=== PATIENT | male | born 1990 | race Caucasian/White ===

== ENCOUNTER 2016-04-19 11:25 | Emergency (ER) | payer MEDICAID, OTHER ==
[2016-04-19 11:51] VITALS: BP 103/58
--- NOTE | 2016-04-19 12:09 | UC ---
Throat Pain/Nasal Nikolas HPI - HPI Summary HPI Summary: complaint of nasal congestion cough sore throat that started yesterday feels worse this morning congestion increasing throat hurts more intermittent headaches in entire head denies ear pain ,fever and chills, tried some dayquil yesterday without relief - History of Current Complaint Chief Complaint: UCRespiratory Stated Complaint: COUGH Hx Obtained From: Patient - Allergies/Home Medications Allergies/Adverse Reactions: Allergies Allergy/AdvReac Type Severity Reaction Status Date / Time Penicillins Allergy Severe ITCHY Verified 07/05/14 08:47 PMH/Surg Hx/FS Hx/Imm Hx Previously Healthy: Yes Endocrine History Of: Denies: Diabetes, Thyroid Disease Cardiovascular History Of: Denies: Cardiac Disorders, Hypertension Respiratory History Of: Reports: Asthma - as a child Denies: COPD GI/ History Of: Denies: Ulcer - Surgical History Surgical History: None Surgery Procedure, Year, and Place: none - Family History Known Family History: Negative: Cardiac Disease, Hypertension, Diabetes - Social History Occupation: Employed Full-time Lives: With Family Alcohol Use: Rare Substance Use Type: Marijuana Smoking Status (MU): Heavy Every Day Tobacco Smoker Type: Cigarettes Amount Used/How Often: 03/29 ppd Cessation Counseling: Patient Advised to Stop Review of Systems Constitutional: Negative Skin: Negative Eyes: Negative ENT: Sore Throat, Nasal Discharge Respiratory: Cough Cardiovascular: Negative Gastrointestinal: Negative Genitourinary: Negative Motor: Negative Neurovascular: Negative Musculoskeletal: Negative Neurological: Negative Psychological: Negative All Other Systems Reviewed And Are Negative: Yes Physical Exam Triage Information Reviewed: Yes Appearance: No Pain Distress, Well-Nourished Vital Signs: Initial Vital Signs Temp 98.8 F 04/19/16 11:39 Pulse 86 04/19/16 11:39 Resp 17 04/19/16 11:39 BP 103/58 04/19/16 11:39 Pulse Ox 96 04/19/16 11:39 Vital Signs Reviewed: Yes Eyes: Positive: Conjunctiva Clear ENT: Positive: Pharyngeal erythema, Nasal congestion, TMs normal. Negative: TM bulging, TM red, Tonsillar swelling, Tonsillar exudate Neck: Positive: No Lymphadenopathy Respiratory: Positive: Lungs clear, Normal breath sounds, No respiratory distress Cardiovascular: Positive: RRR, No Murmur, Pulses Normal Abdomen Description: Positive: Nontender, Soft Bowel Sounds: Positive: Present Musculoskeletal: Positive: No Edema Neurological: Positive: Alert Psychological Exam: Normal Skin Exam: Normal Throat Pain/Nasal Course/Dx - Course Course Of Treatment: exam completed. viral illnes- symptomatic treatment - Differential Dx/Diagnosis Differential Diagnosis/HQI/PQRI: Pharyngitis, URI Provider Diagnoses: URI Discharge - Discharge Plan Condition: Stable Disposition: HOME Prescriptions: Benzonatate CAP* [Tessalon CAP*] 100 mg PO TID PRN #30 cap PRN Reason: Cough Pseudoephedrine TAB* [Sudafed TAB*] 60 mg PO TID #30 tab Patient Education Materials: Upper Respiratory Infection (ED) Referrals: No Primary Care Phys,NOPCP [Primary Care Provider] - [facility] [place] [facility] [Outside] Additional Instructions: VIRAL UPPER RESPIRATORY INFECTION (COMMON COLD) What is Viral Upper Respiratory Infection? Viral upper respiratory infection is the medical term for the common cold. Respiratory infections can be caused by either a virus or bacteria. The common cold is caused by a virus. The virus travels through the air and can be passed easily from one person to another. This is one reason that it is so important to cover your mouth when you cough or sneeze. When you cover your mouth you will get the virus on your hands. If you touch something with that hand the virus is spread to the object you touch. Because of this you should be sure to wash your hands often when you have a cold. Symptoms usually begin 1 to 3 days after the virus takes hold in your body. Other people can catch your cold even before you start to notice symptoms, which is one reason why colds are hard to prevent. Symptoms May Include: Scratchiness or tickling in the throat Sore throat Stuffy nose Generalized aches and pains Coughing or sneezing Feeling tired Treatment Recommendations: Drink plenty of clear, nonalcoholic fluids, such as water, sports drinks, or juice. For example, an average adult should drink 8 ounces every hour, a child 6 to 10 years should drink 4 ounces every hour, and a child under 6 should drink 1 to 2 ounces every hour. You should rest as much as possible. You can use a cool-mist humidifier or steam vaporizer to increase air moisture. This will make it easier to breathe. Remember that a steam vaporizer may contain hot water that can cause severe casey. If you smoke, stopsmoke irritates bronchial passages. If you are coughing up mucus, and milk seems to make the sputum thicker, do not eat or drink foods that contain milk. You want to try to cough up mucous whenever possible so that you dont get pneumonia. Do not use cough suppressant medicine without your healthcare providers [place]. You should take all medications prescribed until completely gone, or as instructed. Non-prescription medicine such as acetaminophen (Tylenol) or ibuprofen (Motrin , Advil) may help your aches, pains, and fever. Do not use nasal sprays unless they are prescribed. Using a nasal spray like Afrin for more than 3 to 4 days may ause the exact opposite of the effect you want. Don't spread your cold. Wash your hands often. Eat a healthy well-balanced diet. Call Your Doctor or Return Here IF: You have trouble breathing. The mucus you are coughing up becomes thicker, has blood in it, or changes color. You have a fever higher than 101.5o F for more than 3 days or does not go down after taking fever reducing medicines. Mucous coming from the nose or throat looks bloody, greenish-yellow, or smells especially bad. You have had symptoms for longer than 14 days. You start to have chest pain or pain that travels to your neck, jaw, arms, or shoulders. You start to have pain in one or both ears. You have a sore throat for more than 3 days, or if you cannot drink liquids. Your symptoms do not seem to be improving after 3 days. You have any other symptoms that worry you. Why Didnt the Doctor Give Me Antibiotics? Colds are caused by a virus. Antibiotics do not work against VIRAL INFECTIONS. A medicine like a "penicillin shot" will not make your cold get better any faster. Any time you take an antibiotic you risk a possible allergic reaction to the medicine which could be very dangerous. You should only take antibiotics for illnesses that your healthcare provider knows are caused by bacteria. The goal of treating a cold is to help you be more comfortable. The cold will usually get better on its own.
== END 2016-04-19 12:25 | disposition home or self-care (01) ==
LOC: UCEAST 11:25
DX: J06.9 Acute upper respiratory infection, unspecified (principal); F12.90 Cannabis use, unspecified, uncomplicated; F17.210 Nicotine dependence, cigarettes, uncomplicated; Z88.0 Allergy status to penicillin
CPT/HCPCS: 99212; G0463

== ENCOUNTER 2016-07-11 14:30 | Emergency (ER) | payer OTHER ==
[2016-07-11 14:47] VITALS: BP 121/69
--- NOTE | 2016-07-11 15:37 | UC ---
Throat Pain/Nasal Nikolas HPI - HPI Summary HPI Summary: ONE WEEK OF SINUS PRESSURE SORE THROAT, LEFT EAR MUFFLED. NO FEVER. - History of Current Complaint Chief Complaint: UCRespiratory Stated Complaint: SINUS ISSUE EAR PLUGGED Time Seen by Provider: 07/11/16 14:42 Hx Obtained From: Patient, Family/Cco & President Onset/Duration: Gradual Onset, Lasting Weeks, Still Present Severity: Moderate Pain Intensity: 4 Pain Scale Used: 0-10 Numeric Cough: Nonproductive Associated Signs & Symptoms: Positive: Hoarseness, Sinus Discomfort, Nasal Discharge. Negative: Fever - Epiglottits Risk Factors Epiglottis Risk Factors: Negative - Allergies/Home Medications Allergies/Adverse Reactions: Allergies Allergy/AdvReac Type Severity Reaction Status Date / Time Penicillins Allergy Severe ITCHY Verified 07/05/14 08:47 Home Medications: Home Medications Acetaminophen [Eq Acetaminophen] 650 mg PO 07/11/16 [History] PMH/Surg Hx/FS Hx/Imm Hx Previously Healthy: Yes Endocrine History Of: Denies: Diabetes, Thyroid Disease Cardiovascular History Of: Denies: Cardiac Disorders, Hypertension Respiratory History Of: Reports: Asthma - as a child Denies: COPD GI/ History Of: Denies: Ulcer - Surgical History Surgical History: None Surgery Procedure, Year, and Place: none - Family History Known Family History: Negative: Cardiac Disease, Hypertension, Diabetes - Social History Occupation: Unemployed Lives: With Family Alcohol Use: Rare Substance Use Type: None Smoking Status (MU): Heavy Every Day Tobacco Smoker Type: Cigarettes Amount Used/How Often: 1/4 ppd Cessation Counseling: Patient Advised to Stop Review of Systems Constitutional: Negative Skin: Negative Eyes: Negative ENT: Sore Throat, Nasal Discharge Respiratory: Cough Cardiovascular: Negative Gastrointestinal: Negative Genitourinary: Negative Motor: Negative Neurovascular: Negative Musculoskeletal: Negative Neurological: Negative Psychological: Negative All Other Systems Reviewed And Are Negative: Yes Physical Exam Triage Information Reviewed: Yes Appearance: No Pain Distress, Well-Nourished, Ill-Appearing - MILDLY Vital Signs: Initial Vital Signs Temp 98.2 F 07/11/16 14:43 Pulse 76 07/11/16 14:43 Resp 18 07/11/16 14:43 BP 121/69 07/11/16 14:43 Pulse Ox 99 07/11/16 14:43 Vital Signs Reviewed: Yes Eye Exam: Normal ENT: Positive: Hearing grossly normal, Pharynx normal, Nasal congestion, TM bulging, TM dull Dental Exam: Normal Neck exam: Normal Neck: Positive: Supple, Nontender, No Lymphadenopathy Respiratory Exam: Normal Respiratory: Positive: Chest non-tender, Lungs clear, Normal breath sounds, No respiratory distress, No accessory muscle use Cardiovascular Exam: Normal Cardiovascular: Positive: RRR, No Murmur, Pulses Normal Abdominal Exam: Normal Musculoskeletal Exam: Normal Neurological Exam: Normal Psychological Exam: Normal Skin Exam: Normal Throat Pain/Nasal Course/Dx - Differential Dx/Diagnosis Differential Diagnosis/HQI/PQRI: Otitis Media, Pharyngitis, Sinusitis, URI Provider Diagnoses: SINUSITIS Discharge - Discharge Plan Condition: Stable Disposition: HOME Prescriptions: Sulfamethox/Trimethoprim DS* [Bactrim DS 800/160 TAB*] 1 tab PO BID #20 tab Patient Education Materials: Sinusitis (ED) Referrals: [facility] [place] [facility] [place] [facility] [place]] No Primary Care Phys,NOPCP [Primary Care Provider] -
== END 2016-07-11 15:32 | disposition home or self-care (01) ==
LOC: UCEAST 14:30
DX: J32.9 Chronic sinusitis, unspecified (principal); Z88.0 Allergy status to penicillin; F17.210 Nicotine dependence, cigarettes, uncomplicated
CPT/HCPCS: 99212; G0463

== ENCOUNTER 2017-04-28 20:25 | Emergency (ER) | payer OTHER ==
[2017-04-28] MEDS ORDERED: Clindamycin CAP* 150 MG PO ONE ×2 (23:12)
--- NOTE | 2017-04-28 23:19 | ED ---
Randy Chisholm Jennifer, scribed for Deshawn Kaplan MD on 04/28/17 at 2143 . Throat Pain/Nasal Congestion - HPI Summary HPI Summary: The patient is a 27 year old male who presents to the ED with throat pain that began a few days ago. He describes that he was in the bathroom earlier when he started spitting up blood and it kept getting worse. He estimates he spit up about a quarter of a cup full of blood. The patient additionally complains of a lump in the back right of his throat and pain in the right ear that began a couple days ago. He reports that when he looked at his throat, it looked like a blood clot. The patient denies fever. He has had his tonsil removed. - History of Current Complaint Chief Complaint: EDThroatPain Time Seen by Provider: 04/28/17 21:29 Hx Obtained From: Patient Onset/Duration: Sudden Onset, Still Present Severity: Mild Cough: Productive - Sptting out blood - Allergies/Home Medications Allergies/Adverse Reactions: Allergies Allergy/AdvReac Type Severity Reaction Status Date / Time MS Penicillins [Penicillins] Allergy Severe ITCHY Verified 07/05/14 08:47 PMH/Surg Hx/FS Hx/Imm Hx Endocrine/Hematology History: Denies: Hx Diabetes, Hx Thyroid Disease Cardiovascular History: Denies: Hx Hypertension Respiratory History: Reports: Hx Asthma - as a child Denies: Hx Chronic Obstructive Pulmonary Disease (COPD) GI History: Denies: Hx Ulcer Musculoskeletal History: Reports: Other Musculoskeletal History - RIGHT HIP FRACTURE AT AGE 7 - Surgical History Surgery Procedure, Year, and Place: none Infectious Disease History: No Infectious Disease History: Denies: Hx Clostridium Difficile, Hx Hepatitis, Hx Human Immunodeficiency Virus (HIV), Hx of Known/Suspected MRSA, Hx Shingles, Hx Tuberculosis, Traveled Outside the [place] in Last 30 Days - Family History Known Family History: Negative: Cardiac Disease, Hypertension, Diabetes - Social History Alcohol Use: Rare Substance Use Type: Reports: None Smoking Status (MU): Heavy Every Day Tobacco Smoker Type: Cigarettes Amount Used/How Often: 1/4 ppd Review of Systems Negative: Fever Positive: Sore Throat - Lump on right side of throat, Ear Ache - Right ear, Other - Spitting up blood All Other Systems Reviewed And Are Negative: Yes Physical Exam - Summary Physical Exam Summary: General: well-appearing, no pain distress Skin: warm, color reflects adequate perfusion, dry Head: normal Eyes: EOMI, MIKE ENT: +2 tonsil bilateral, no active bleeding. No peritonsular swelling. Voice normal. No mass palpated externally in neck. Neck: supple, nontender Respiratory: CTA, breath sounds present Cardiovascular: RRR Abdomen: soft, nontender Bowel: present Musculoskeletal: normal, strength/ROM intact Neurological: normal, sensory/motor intact, A&O x3 Psychological: affect/mood appropriate Triage Information Reviewed: Yes Vital Signs On Initial Exam: Initial Vitals Temp Pulse Resp BP Pulse Ox 97.8 F 90 16 123/90 97 04/28/17 20:41 04/28/17 20:41 04/28/17 20:41 04/28/17 20:41 04/28/17 20:41 Vital Signs Reviewed: Yes Diagnostics - Vital Signs Vital Signs Temp Pulse Resp BP Pulse Ox 04/28/17 20:41 97.8 F 90 16 123/90 97 - Laboratory Lab Statement: Any lab studies that have been ordered have been reviewed, and results considered in the medical decision making process. - CT CT Neck CT Interpretation: Positive (See Comments) - There is a small retention cyst or polyp in the right sphenoid sinus. Leftward deviation of the nasal septum. Imaged portions of the skull base are otherwise normal. Dr. Kaplan has reviewed this report. CT Interpretation Completed By: Radiologist EENT Course/Dx - Course Course Of Treatment: BP noted and advised to follow up with PCP. Allergies noted. Medications reviewed. NO BLOOD SEEN ON EXAM. RIGHT TONSIL IS MILDLY ENLARGE COMPARED TO THE LEFT. THERE IS AN ENLARGED LYMPH NODE ON THE RIGHT SEEN ON CT. WILL TREAT WITH CLINDAMYCIN. F/U PMD AND/OR ENT; RETURN IF WORSE. - Diagnoses Provider Diagnoses: Blood pressure elevated without history of HTN, Bleeding from throat Discharge - Discharge Plan Condition: Stable Disposition: HOME Prescriptions: Clindamycin Cap(NF) [Clindamycin Cap 300 mg Cap(NF)] 300 mg PO Q6H #38 cap Patient Education Materials: Pharyngitis (ED) Referrals: [facility] [Provider Group] [facility] [Outside] No Primary Care Phys,NOPCP [Primary Care Provider] - Additional Instructions: FOLLOW UP WITH YOUR PRIMARY CARE DOCTOR. YOU MAY ALSO NEED TO FOLLOW UP WITH ENT FOR FURTHER EVALUATION OF THE BLEEDING IN YOUR THROAT. RETURN TO THE EMERGENCY DEPARTMENT FOR ANY WORSENING OF YOUR CONDITION OR QUESTIONS OR CONCERNS. Your blood pressure was elevated during todays visit; please follow up with your primary care provider within a week for further evaluation. The documentation as recorded by the Randy moctezuma Jennifer accurately reflects the service I personally performed and the decisions made by me, Deshawn Kaplan MD.
[2017-04-28 23:38] VITALS: BP 119/86
--- NOTE | 2017-04-29 09:08 | RAD ---
INDICATION: "Coughing up blood" COMPARISON: None TECHNIQUE: A CT scan of the neck was performed without nonionic contrast. Contiguous axial sections were obtained from the skull base through the lung apices. Images were reconstructed in the coronal and sagittal planes. FINDINGS: The airway is patent. The epiglottis and aryepiglottic folds appear within normal limits. There is a mild degree of asymmetric soft tissue thickening involving the right of midline soft palate and posterior oropharynx tissues. There is no drainable fluid collection. At the right cervical chain there are mildly enlarged lymph nodes measuring up to 1.3 and 1.4 cm in short access dimension (coronal image 69). The parotid and submandibular glands appear to be within normal limits. The thyroid gland appears normal. The lung apices appear clear. There is a small focus of inspissated secretion in the right sphenoid sinus. Remaining visualized paranasal sinuses are adequately aerated. The left mastoid air cells are hypoplastic relative to the right. No significant focal osseous abnormality is seen. IMPRESSION: There is mild asymmetric soft tissue thickening without drainable fluid collection in the left posterior naso and oropharynx with mild ipsilateral cervical chain lymphadenopathy. An infectious etiology is favored in a patient of this age depending on clinical presentation. Please correlate to direct visualization of the oropharynx.
== END 2017-04-28 23:35 | disposition home or self-care (01) ==
LOC: ED 20:25
DX: R58 Hemorrhage, not elsewhere classified (principal); R03.0 Elevated blood-pressure reading, without diagnosis of hypertension; F17.210 Nicotine dependence, cigarettes, uncomplicated
CPT/HCPCS: 70490; 99282; A9270-GY

== ENCOUNTER 2017-10-29 17:03 | Emergency (ER) | payer OTHER ==
[2017-10-29 17:08] VITALS: BP 145/84
[2017-10-29] MEDS ORDERED: oxyCODONE TAB* 5 MG TAB PO ONE (17:30)
--- NOTE | 2017-10-29 17:31 | ED ---
Throat Pain/Nasal Congestion - HPI Summary HPI Summary: C/o toothache right upper mouth x 1 week. Denies fever, purulent drainage, sore throat, sob, N/V, TOVAR, ear pain. States he cannot eat or sleep due to pain. Seen at [place] and given clindamycin but no pain control. States ibuprofen is not working. Med hx = none. has appt with dentist 11/14. - History of Current Complaint Chief Complaint: EDDentalPain Time Seen by Provider: 10/29/17 17:09 Hx Obtained From: Patient Onset/Duration: Gradual Onset Severity: Severe Associated Signs And Symptoms: Positive: Negative Cough: None - Allergies/Home Medications Allergies/Adverse Reactions: Allergies Allergy/AdvReac Type Severity Reaction Status Date / Time MS Penicillins [Penicillins] Allergy Severe ITCHY Verified 07/05/14 08:47 PMH/Surg Hx/FS Hx/Imm Hx Endocrine/Hematology History: Denies: Hx Anticoagulant Therapy, Hx Diabetes, Hx Thyroid Disease Cardiovascular History: Denies: Hx Hypertension Respiratory History: Reports: Hx Asthma - as a child Denies: Hx Chronic Obstructive Pulmonary Disease (COPD) GI History: Denies: Hx Ulcer History: Denies: Hx Dialysis Musculoskeletal History: Reports: Other Musculoskeletal History - RIGHT HIP FRACTURE AT AGE 7 Neurological History: Denies: Hx CVA - Surgical History Surgery Procedure, Year, and Place: none Infectious Disease History: No Infectious Disease History: Denies: Hx Clostridium Difficile, Hx Hepatitis, Hx Human Immunodeficiency Virus (HIV), Hx of Known/Suspected MRSA, Hx Shingles, Hx Tuberculosis, Traveled Outside the [place] in Last 30 Days - Family History Known Family History: Negative: Cardiac Disease, Hypertension, Diabetes - Social History Alcohol Use: Rare Substance Use Type: Reports: None Smoking Status (MU): Heavy Every Day Tobacco Smoker Type: Cigarettes Amount Used/How Often: 1/4 ppd Review of Systems Constitutional: Negative Eyes: Negative Positive: Dental Pain Cardiovascular: Negative Respiratory: Negative Gastrointestinal: Negative Genitourinary: Negative Musculoskeletal: Negative Skin: Negative Neurological: Negative Psychological: Normal All Other Systems Reviewed And Are Negative: Yes Physical Exam - Summary Physical Exam Summary: No dental abscess, oral lesions, purulent drainage noted. + dental caries Triage Information Reviewed: Yes Vital Signs On Initial Exam: Initial Vitals Temp Pulse Resp BP Pulse Ox 96 F 99 16 145/84 99 10/29/17 17:07 08/06/18 17:07 10/29/17 17:07 10/29/17 17:07 10/29/17 17:07 Vital Signs Reviewed: Yes Appearance: Positive: Well-Appearing Skin: Positive: Warm Head/Face: Positive: Normal Head/Face Inspection Eyes: Positive: Normal ENT: Positive: Normal ENT inspection Dental: Positive: Gross Decay/Caries @. Negative: Abscess @, Cellulitis @, Bleeding Neck: Positive: Supple Respiratory/Lung Sounds: Positive: Clear to Auscultation Cardiovascular: Positive: Normal Abdomen Description: Positive: Nontender Musculoskeletal: Positive: Normal Neurological: Positive: Normal Psychiatric: Positive: Normal AVPU Assessment: Alert - Stephens Coma Scale Best Eye Response: 4 - Spontaneous Best Motor Response: 6 - Obeys Commands Best Verbal Response: 5 - Oriented Coma Scale Total: 15 Diagnostics - Vital Signs Vital Signs Temp Pulse Resp BP Pulse Ox 10/29/17 17:07 96 F 99 16 145/84 99 - Laboratory Lab Statement: Any lab studies that have been ordered have been reviewed, and results considered in the medical decision making process. EENT Course/Dx - Course Course Of Treatment: C/o toothache right upper mouth x 1 week. Denies fever, purulent drainage, sore throat, sob, N/V, TOVAR, ear pain. States he cannot eat or sleep due to pain. Seen at [place] and given clindamycin but no pain control. States ibuprofen is not working. Med hx = none. has appt with dentist . No dental abscess, oral lesions, purulent drainage noted. + dental caries. [facility] ref # [id number] for opiate rx hx. - Diagnoses Provider Diagnoses: Toothache Discharge - Sign-Out/Discharge Documenting (check all that apply): Patient Departure - Discharge Plan Condition: Stable Disposition: HOME Patient Education Materials: Toothache (ED) Referrals: No Primary Care Phys,NOPCP [Primary Care Provider] - Additional Instructions: Follow up with your dentist. Return to ED for any new or worsening symptoms. - Billing Disposition and Condition Condition: STABLE Disposition: Home
== END 2017-10-29 17:42 | disposition home or self-care (01) ==
LOC: ED 17:03
DX: K08.89 Other specified disorders of teeth and supporting structures (principal); F17.210 Nicotine dependence, cigarettes, uncomplicated; Z88.0 Allergy status to penicillin
CPT/HCPCS: 99282; A9270-GY

== ENCOUNTER 2017-11-06 10:17 | Emergency (ER) | payer OTHER ==
[2017-11-06] MEDS ORDERED: Tetan/Diph/Pertus SYR(Tdap)* 0.5 ML SYR(BOOSTRIX) use SYR IM ONE (11:05)
[2017-11-06] MEDS ORDERED: Lidocaine 1% INJ* 10 MG/ML 30 ML SDV INJ ONE (11:05)
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
[2017-11-06 12:15] VITALS: BP 127/69
== END 2017-11-06 12:15 | disposition home or self-care (01) ==
LOC: ED 10:17
DX: S61.217A Laceration without foreign body of left little finger without damage to nail, initial encounter (principal); W45.8XXA Other foreign body or object entering through skin, initial encounter; Y92.9 Unspecified place or not applicable; F17.210 Nicotine dependence, cigarettes, uncomplicated; Z23 Encounter for immunization; Z88.0 Allergy status to penicillin
CPT/HCPCS: 12001; 90471; 90715; 99283

== ENCOUNTER 2018-09-23 10:16 | Emergency (ER) | payer OTHER ==
[2018-09-23 10:33] VITALS: BP 138/70
[2018-09-23] MEDS ORDERED: Fluorescein Sodium TOPICAL* 1 MG TEST STRIP OPHTHALMIC ONE (11:04)
[2018-09-23] MEDS ORDERED: Tetracaine 0.5% OPTH.SOL 4 ML* 1 DROP BTL RIGHT EYE ONE (11:04)
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
[2018-09-23] MEDS ORDERED: Tobramycin 0.3% OPHTH.SOL* 5 ML BOT (regular eye drops) RIGHT EYE ONE (11:41)
[2018-09-23] MEDS ORDERED: Mupirocin 2% OINT* TUBE TOPICAL ONE (12:17)
== END 2018-09-23 12:26 | disposition home or self-care (01) ==
LOC: UCEAST 10:16
DX: T15.91XA Foreign body on external eye, part unspecified, right eye, initial encounter (principal); T15.01XA Foreign body in cornea, right eye, initial encounter; S40.211A Abrasion of right shoulder, initial encounter; S70.212A Abrasion, left hip, initial encounter; S20.312A Abrasion of left front wall of thorax, initial encounter; V29.40XA Motorcycle driver injured in collision with unspecified motor vehicles in traffic accident, initial encounter; Y92.9 Unspecified place or not applicable; Z88.0 Allergy status to penicillin; F17.210 Nicotine dependence, cigarettes, uncomplicated
CPT/HCPCS: 99202; A9270-GY; G0463